=== PATIENT | male | born 1985 | race Caucasian/White ===

== ENCOUNTER 2019-12-26 07:48 | Day surgery (SDC) | payer MEDICARE, OTHER ==
[~2019-12-26] VITALS: Ht 185.4 cm; Wt 82.0 kg
[~2019-12-26 07:48] MED LIST: BUPIVACAINE/PF 0.5% ONE; LIDOCAINE 1%, 20ML ONE
[2019-12-26 08:15] VITALS: BP 128/79
[2019-12-26] MEDS ORDERED: LACTATED RINGERS 1,000 ML IV SCH (08:18)
[2019-12-26] MEDS ORDERED: CHLORHEXIDINE 15 ML UDC ONE (08:22)
[2019-12-26] MEDS ORDERED: CHLORHEXIDINE 15 ML UDC MM ONE (08:30)
[2019-12-26] MEDS ORDERED: FENTANYL PF 100 MCG/2ML ONE (09:26)
[2019-12-26] MEDS ORDERED: MIDAZOLAM 1 MG/ML, 2ML ONE (09:26)
[2019-12-26] MEDS ORDERED: BUPIVACAINE/PF 0.5% ONE (09:31)
[2019-12-26] MEDS ORDERED: CEFAZOLIN 1,000 MG ONE (11:09)
[2019-12-26] MEDS ORDERED: DEXAMETHASONE 4 MG/ML, 1ML ONE (11:09)
[2019-12-26] MEDS ORDERED: ONDANSETRON 2MG/ML, 2ML ONE (11:09)
[2019-12-26] MEDS ORDERED: PROPOFOL 10 MG/ML, 20ML ONE (11:09)
[2019-12-26] MEDS ORDERED: MEPERIDINE/PF 25MG/0.5ML IVPush PRN (11:30)
[2019-12-26] MEDS ORDERED: MIDAZOLAM 1 MG/ML, 2ML IV PRN (11:30)
[2019-12-26] MEDS ORDERED: KETOROLAC 30 MG/1 ML IVPush PRN (11:30)
[2019-12-26] MEDS ORDERED: ACETAMINOPHEN 325 MG TABLET PO PRN (11:30)
[2019-12-26] MEDS ORDERED: OXYcodone 5 MG/5 ML ORAL.SOL UDC PO PRN (11:30)
[2019-12-26] MEDS ORDERED: PROMETHAZINE 25 MG/ML, 1ML IVPush PRN (11:30)
[2019-12-26] MEDS ORDERED: FENTANYL PF 100 MCG/2ML IV PRN (11:30)
== END 2019-12-26 13:20 | disposition home or self-care (01) ==
LOC: OUT 07:48 → EDSTATUS 09:45 → OUT 13:20
PROVIDERS: ATTEND Orthopaedic Surgery
DX: T84.84XA Pain due to internal orthopedic prosthetic devices, implants and grafts, initial encounter (principal); M24.542 Contracture, left hand; M20.42 Other hammer toe(s) (acquired), left foot; M20.5X2 Other deformities of toe(s) (acquired), left foot; Z87.891 Personal history of nicotine dependence; Y83.8 Other surgical procedures as the cause of abnormal reaction of the patient, or of later complication, without mention of misadventure at the time of the procedure
CPT/HCPCS: 20680; 28232; 28285; 28755; 64445; 64447; 73620; C1713; J0690; J1100; J2250; J2405; J2704; J3010; J7120; U0001; 76000